=== PATIENT | female | born 1995 | race Caucasian/White ===

== ENCOUNTER 2020-01-15 10:19 | Emergency (ER) | payer OTHER ==
[~2020-01-15] VITALS: Ht 162.6 cm; Wt 63.7 kg
[2020-01-15 11:06] LABS: BASOPHILS # (AUTO) 0.04 x10^3/uL (0-0.1); BASOPHILS % (AUTO) 0 % (0-1); EOSINOPHILS # (AUTO) 0.06 x10^3/uL (0-0.4); EOSINOPHILS % (AUTO) 1 % (1-7); LYMPHOCYTES # (AUTO) 1.78 x10^3/uL (1-3.4); LYMPHOCYTES % (AUTO) 17 % (22-44); MD NO; MEAN CORPUSCULAR HEMOGLOBIN 32.7 pg (27.0-34.8); MEAN CORPUSCULAR HGB CONC 33.8 g/dL (32.4-35.8); MEAN CORPUSCULAR VOLUME 96.8 fL (80-100); MEAN PLATELET VOLUME 9.6 fL (7.4-10.4); MONOCYTES # (AUTO) 0.84 x10^3/uL (0.2-0.8); MONOCYTES % (AUTO) 8 % (2-9); NEUTROPHILS # (AUTO) 7.48 x10^3/uL (1.8-6.8); NEUTROPHILS % (AUTO) 73 % (42-75); PLATELET COUNT 279 x10^3/uL (130-400); RED BLOOD COUNT 4.01 x10^6/uL (3.82-5.3); RED CELL DISTRIBUTION WIDTH 12.8 % (9.6-15.2)
[2020-01-15 11:13] LABS: ALANINE AMINOTRANSFERASE 39 U/L (12-78); ALBUMIN 4.1 g/dL (3.4-5.0); ANION GAP 8 mmol/L (5-15); CALCIUM 8.6 mg/dL (8.5-10.1); CHLORIDE 106 mmol/L (98-107)
[2020-01-15 11:19] LABS: ALKALINE PHOSPHATASE 64 U/L (45-117); BILIRUBIN,TOTAL 1.2 mg/dL (0.2-1.0)
[2020-01-15 11:20] LABS: MICROSCOPIC INDICATED
[2020-01-15] MEDS ORDERED: CEFTRIAXONE 1,000 MG IM ONE (12:30)
[2020-01-15 12:36] VITALS: BP 108/70
[2020-01-15] MEDS ORDERED: CEFTRIAXONE 1,000 MG ONE ×2 (12:40→12:52)
[2020-01-15] MEDS ORDERED: LIDOCAINE-MPF 1%, 5ML ONE (12:40)
== END 2020-01-15 13:07 | disposition home or self-care (01) ==
LOC: ED 12:07
DX: N39.0 Urinary tract infection, site not specified (principal); N10 Acute pyelonephritis; R31.9 Hematuria, unspecified; R10.31 Right lower quadrant pain
CPT/HCPCS: 36415; 76830; 80053; 81001; 84703; 85025; 86901; 87077; 87086; 96372; 99284; J0696; 87186

== ENCOUNTER 2020-07-05 11:45 | Emergency (ER) | payer OTHER ==
[~2020-07-05] VITALS: Ht 162.6 cm; Wt 64.5 kg
[2020-07-05 11:51] VITALS: BP 109/80
--- NOTE | 2020-07-05 12:46 | NUR ---
MARKET ANALYSIS DIRECTOR: PT TO ROOM FROM [facility]
== END 2020-07-05 13:26 | disposition home or self-care (01) ==
LOC: ED 12:29
DX: J20.8 Acute bronchitis due to other specified organisms (principal); Z20.828 Contact with and (suspected) exposure to other viral communicable diseases; R06.02 Shortness of breath
CPT/HCPCS: 71045; 87635; 93005; 99285

== ENCOUNTER 2021-01-02 16:19 | Emergency (ER) | payer OTHER ==
[~2021-01-02] VITALS: Ht 162.6 cm; Wt 54.2 kg
[2021-01-02 16:31] VITALS: BP 117/77
[2021-01-02] MEDS ORDERED: LIDOCAINE-MPF 1%, 5ML ONE (19:01)
[2021-01-02] MEDS ORDERED: NEOSPORIN OINT. PKT 1 PACKET ONE (20:10)
== END 2021-01-02 20:19 | disposition home or self-care (01) ==
LOC: ED 20:00
DX: S61.411A Laceration without foreign body of right hand, initial encounter (principal); X58.XXXA Exposure to other specified factors, initial encounter; Y93.89 Activity, other specified; Y92.009 Unspecified place in unspecified non-institutional (private) residence as the place of occurrence of the external cause; Y99.8 Other external cause status
CPT/HCPCS: 12041; 99284